=== PATIENT | female | born 1990 | race Caucasian/White ===

== ENCOUNTER 2018-07-02 17:51 | Emergency (ER) | payer OTHER, MEDICAID, SELFPAY ==
[2018-07-02 18:04] VITALS: BP 144/98; PULSE 121; RESP 18; TEMP 37.1; O2SAT 100; BMI 28.3
[2018-07-02 20:50] VITALS: BP 130/82; PULSE 96; O2SAT 96
--- NOTE | 2018-07-02 21:06 | ED_ITS ---
HPI - Wound/Laceration <STEPHEN Tamez - Last Filed: 07/02/18 22:32> General Chief Complaint: Wound/Laceration Stated Complaint: PAIN IN LEFT BREAST,BREAST FEEDING Time Seen by Provider: 07/02/18 20:49 Source: patient Mode of arrival: ambulatory Limitations: no limitations History of Present Illness HPI narrative: healthy 28-year-old female that is a nonsmoker and iscurrently breast feeding having complaint of bilateral breast pain over the past day. She states that she is trying to wean her son from breast-feeding she denies any fevers. she states that she did feel like she had chills earlier today. She denies any purulent drainage from the breast. No increased erythema or swelling. she denies any trauma to the breast. She denies any other concerns or complaints at this time. Related Data Previous Rx's Medication Instructions Recorded cephalexin 500 mg PO QID #28 tab 07/02/18 Allergies Allergy/AdvReac Type Severity Reaction Status Date / Time No Known Drug Allergies Allergy Verified 07/02/18 18:04 Review of Systems <STEPHEN Tamez - Last Filed: 07/02/18 22:32> Constitutional Denies chills, Denies fever(s), Denies lethargy and Denies weakness Eyes Denies change in vision, Denies eye discharge, Denies irritation and Denies loss of vision ENT Ears, Nose, Mouth, and Throat: Denies change in voice, Denies neck pain and Denies sore throat Cardiovascular Denies chest pain, Denies irregular heart rhythm, Denies lightheadedness, Denies palpitations, Denies dyspnea, Denies dyspnea on exertion and Denies orthopnea Respiratory Denies cough, Denies dyspnea, Denies dyspnea on exertion and Denies wheezing Gastrointestinal Gastrointestinal: Denies abdominal pain, Denies change in bowel habits, Denies diarrhea, Denies nausea and Denies vomiting Genitourinary Denies hematuria, Denies flank pain, Denies urinary incontinence and Denies urinary urgency Musculoskeletal Denies neck pain Integumentary/Breasts Reports breast pain Neurologic Denies confusion, Denies loss of vision and Denies weakness Psychiatric Denies anxiety, Denies confusion, Denies depression, Denies homicidal ideation and Denies suicidal ideation Endocrine Denies palpitations Hematologic/Lymphatic Denies easy bruising Allergic/Immunologic Denies wheezing Exam <STEPHEN Tamez - Last Filed: 07/02/18 22:32> Initial Vital Signs Initial Vital Signs: Vital Signs Temperature 98.8 F 07/02/18 18:04 Pulse Rate 121 H 07/02/18 18:04 Respiratory Rate 18 07/02/18 18:04 Blood Pressure 144/98 H 07/02/18 18:04 Pulse Oximetry 100 07/02/18 18:04 Const General: cooperative and well developed Nutritional Appearance: well nourished Orientation: alert, awake, oriented x3 and not confused [facility] Mouth: oral mucosae normal, oropharynx normal and moist mucous membranes Eyes Conjunctivae: conjunctivae normal Sclera: sclerae normal Pupils: PERRL EOM: EOM intact bilaterally Resp Effort & Inspection: normal respiratory effort, able to speak in complete sentences, no respiratory distress and no use of accessory muscles Auscultation: clear to auscultation bilaterally, no rales, no rhonchi and no wheezes Cardio Rate: regular rate Rhythm: regular rhythm Heart Sounds: no click, no gallops, no murmurs and no rubs Pulses: normal peripheral pulses GI Inspection: non-distended Palpation: soft, no hepatosplenomegaly, No guarding, No pulsatile mass and No tender Auscultation: normal bowel sounds Other: Bilateral breast with no swelling. No erythema. No increased temperature. No induration or fluctuance is felt. Breast appear normal in size bilaterally. Neuro General: alert, oriented x3, gait normal and no focal motor deficits Speech: speech normal <Christine Sullivan DO - Last Filed: 07/03/18 03:15> Initial Vital Signs Initial Vital Signs: Vital Signs Temperature 98.8 F 07/02/18 18:04 Pulse Rate 121 H 07/02/18 18:04 Respiratory Rate 18 07/02/18 18:04 Blood Pressure 144/98 H 07/02/18 18:04 Pulse Oximetry 100 07/02/18 18:04 Course <STEPHEN Tamez - Last Filed: 07/02/18 22:32> Vital Signs - 8 hr 07/02/18 20:50 Pulse Rate 96 H Blood Pressure [Right Arm] 130/82 Pulse Oximetry 96 <Christine Sullivan DO - Last Filed: 07/03/18 03:15> Vital Signs - 8 hr 07/02/18 20:50 Pulse Rate 96 H Blood Pressure [Right Arm] 130/82 Pulse Oximetry 96 MDM - Wound/Laceration <STEPHEN Tamez - Last Filed: 07/02/18 22:32> [facility] Narrative Medical decision making narrative: No signs of infection to the breast were appreciated at this time. Differential between a engorgement secondary to weaning her child or due to starting mastitis. Instructions are given for conservative care for engorgement if worsening symptoms such as increased redness or signs of infection she is giving a prescription for cephalexin to start taking. [id number] ibuprofen as needed for any discomfort . Follow up with primary care provider. For any worsening symptoms return to the emergency room. Discharge Plan Departure Patient Disposition: Home Clinical Impression: Pain of breast during Discharge Date/Time: 07/02/18 21:52 Interventions: ED Discharge Assessment Last Done: 07/02/18 21:51 Instructions: Breast Engorgement (Alternative Therapy), DI for Mastitis Activity Restrictions/Additional Instructions: No signs of infection to the breasts were appreciated at this time. Differential between a engorgement secondary to weaning child or due to starting mastitis. Instructions are given for conservative care for engorgement below. If worsening symptoms such as increased redness or signs of infection you are giving a prescription for cephalexin to start taking se as directed. Gwsk-akp-[id number] ibuprofen as needed for any discomfort . Follow up with primary care provider. For any worsening symptoms return to the emergency room. Applying warm compresses or a warm shower enhances let-down and may facilitate milk removal either by hand expression or with suckling After or between feedings, cold compresses may decrease the swelling and discomfort Analgesics such as ibuprofen and acetaminophen may decrease the discomfort Cool green cabbage leaves Prescriptions: New cephalexin 500 mg tablet 500 mg PO QID Qty: 28 RF: 0 Referrals: [facility] [Provider Group] <Christine Sullivan DO - Last Filed: 07/03/18 03:15> Cosign ED Attending Otf Attestation: I was immediately available in the department for consultation. Documentation has been reviewed. I agree with assessment and plan.
--- NOTE | 2018-07-02 21:50 | PC.NURSE ---
Pt states that she has began to ween her son from breast feeding,pt c/o left breast pain. No drainage,redness or increased swelling noted on exam.
== END 2018-07-02 21:52 | disposition home or self-care (01) ==
PROVIDERS: Emergency Provider Nurse Practitioner Family
DX: N64.4 Mastodynia (principal)
CPT/HCPCS: 99282

== ENCOUNTER 2023-02-16 14:56 | Emergency (ER) | payer OTHER, MEDICAID, SELFPAY ==
[2023-02-16] VITALS (12 sets, daily range): BP systolic 128–149; BP diastolic 71–89; PULSE 76–123; RESP 20; TEMP 36.8; O2SAT 97–98; BMI 28.3
--- NOTE | 2023-02-16 15:12 | DI.RAD.S_ITS ---
PROCEDURE: XR CHEST 1V INDICATIONS: chest pain TECHNIQUE: One view of the chest was acquired. COMPARISON: None. FINDINGS: Surgical changes and devices: None. Lungs and pleura: Lungs are clear. No pleural effusions or pneumothorax. Mediastinum: Mediastinal contours appear normal. Heart size is normal. Bones and chest wall: No suspicious bony lesions. Overlying soft tissues appear unremarkable. IMPRESSION: No acute cardiopulmonary abnormality. Dictated by: Evan Sanz M.D. on 02/16/2023 at 16:30 Approved by: Evan Sanz M.D. on 02/16/2023 at 16:32
[2023-02-16 15:48] LABS: Add Manual Diff / Slide Review NO; Basophils Absolute Auto 0 /uL (0-100); Basophils Percent Auto 0.4 % (0-2); Eosinophils Absolute Auto 100 /uL (0-450); Eosinophils Percent Auto 0.9 % (2-4); Hematocrit 35.3 % (36-46); Hemoglobin 12.6 g/dL (12.0-16.0); Lymphocytes Absolute Auto 1400 /uL (1100-4500); Lymphocytes Percent Auto 11.6 % (25-40); Mean Corpuscular HGB Conc 35.8 % (30-36); Mean Corpuscular Hemoglobin 30.9 PG (26-34); Mean Corpuscular Volume 86.3 fL (80-100); Monocytes Absolute Auto 600 /uL (0-900); Monocytes Percent Auto 5.4 % (3-14); Neutrophils Absolute Auto 9600 /uL (1500-7000); Neutrophils Percent Auto 81.7 % (50-75); Platelet Count 290 X10^3/uL (150-400); Red Blood Cell Count 4.09 X10^6/uL (4.0-5.2); Red Cell Distribution Width 12.8 % (11.6-14.8); White Blood Cell Count 11.7 X10^3/uL (4.5-11.0)
[2023-02-16 15:53] LABS: INR 1.1 (0.9-1.3); Prothrombin Time 12.5 SECONDS (10.1-12.7)
[2023-02-16 15:56] LABS: PTT Partial Thromboplastin Tim 28 SECONDS (26-36)
[2023-02-16 16:00] LABS: Alanine Aminotransferase 14 IU/L (<35); Albumin 4.6 g/dL (3.5-5.0); Albumin Globulin Ratio 1.5 (1.0-2.8); Alkaline Phosphatase 58 U/L (38-126); Aspartate Aminotransferase 22 IU/L (14-36); BUN Creatinine Ratio 10.3 (6-22); Bilirubin Total 0.5 mg/dL (0.2-1.3); Blood Urea Nitrogen 7 mg/dL (7-17); Calcium 9.6 mg/dL (8.4-10.2); Carbon Dioxide 24 mmol/L (22-32); Chloride 106 mmol/L (98-107); Creatine Kinase 64 U/L (30-135); Estimated Glomerular Filt Rate > 60 mL/min (>60); Globulin 3.1 g/dL (1.7-4.1); Glucose 106 mg/dL (70-100); HEMOLYSIS 15 (0-50); Lipase 49 U/L (23-300); Magnesium 1.9 mg/dL (1.6-2.3); Potassium 3.5 mmol/L (3.4-5.1); Sodium 139 mmol/L (137-145); Total Protein 7.7 g/dL (6.3-8.2)
[2023-02-16 16:11] LABS: Troponin I < 0.012 ng/mL (0.01-0.034)
[2023-02-16 16:33] LABS: TSH w/ Reflex to FT4 5.26 uIU/mL (0.47-4.68)
[2023-02-16 16:58] LABS: Appearance Urine UA CLEAR; Bilirubin Urine UA NEGATIVE (NEGATIVE); Color Urine UA YELLOW; Glucose Urine UA NEGATIVE (Negative); Ketones Urine UA NEGATIVE (NEGATIVE); Leukocyte Esterase Urine UA NEGATIVE (NEGATIVE); Nitrite Urine UA NEGATIVE (Negative); Occult Blood Urine UA NEGATIVE (Negative); Protein Urine UA NEGATIVE (Negative); Specific Gravity Urine UA <=1.005 (1.000-1.035); Urobilinogen Urine UA 0.2 E.U./dL (0.2)
--- NOTE | 2023-02-16 17:00 | PC.NURSE ---
Provided food and beverage
[2023-02-16 17:02] LABS: pH Urine UA 5.5 (4.5-8.0)
[2023-02-16 17:05] LABS: Pregnancy Test Urine Negative (Negative)
[2023-02-16 17:06] LABS: Bacteria Urine None Seen; Culture Indicated Urine Cult Not Indicated; RBC Urine 0-1/HPF (0-5/HPF); Squamous Epithelial Cell Urine 0-1 /HPF (0-5/HPF); WBC Urine 0-1/HPF (0-5/HPF)
[2023-02-16 17:06] LABS: Free T4, Direct Thyroxine 0.99 ng/dL (0.78-2.19)
--- NOTE | 2023-02-16 18:26 | CM.SWNOTE ---
Addendum entered by Deann Matute 02/17/23 12:22: HISTORIAN RESEARCH ASSISTANT calls PCP office and schedules ED f/u establish care appt for patient with Dr. Graham on 02/24 @ 9:15AM check in. HISTORIAN RESEARCH ASSISTANT calls patient and provides information, patient indicates agreement and understanding. ADAM Selby Original Note: HISTORIAN RESEARCH ASSISTANT Assessment Note HISTORIAN RESEARCH ASSISTANT receives consult for patient due to patient's anxiety. Patient is 33 y/o female who presents to ED via POV due to concern for anxiety attacks for the last 2 weeks. Patient does not have PCP, [facility]. HISTORIAN RESEARCH ASSISTANT enters room to meet with patient, patient presents as A/Ox4. Patient presents with flat affect and fatigued. Patient denies SI, HI or self harm. Patient endorses concern for anxiety, physical symptoms of anxiety and concern that there is something wrong with her. Patient denies need for regular medical visits as she has not seen a doctor since her son was born 6 years ago. Patient endorses stress and anxiety at baseline but states that symptoms have worsened in the last two weeks. 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 Patient endorses fatigue and sometimes forgets to care for self, eat and drink. Patient states she is usually focused on caring for others. Patient endorses she has a good support system from her spouse and her sister who lives in [place]. Patient endorses she doesn't usually talk about her stressors or reach out for help. Patient endorses that anxiety increases at night and she feels her heart rate increase, chest pain and mind racing. HISTORIAN RESEARCH ASSISTANT discusses breathing techniques and grounding techniques with patient. HISTORIAN RESEARCH ASSISTANT to call patient and PCP office tomorrow to establish PCP care for patient, HISTORIAN RESEARCH ASSISTANT provides patient with list of therapists that accept her insurance. HISTORIAN RESEARCH ASSISTANT to provide patient handout about square breathing. Plan: Patient to be evaluated by ED provider, HISTORIAN RESEARCH ASSISTANT to f/u with patient tomorrow regarding PCP, patient to seek provider. ADAM Selby
[2023-02-16] MEDS: SODIUM CHLORIDE 0.9% 1,000 ML 1000 ML IV (18:35)
[2023-02-16 18:41] LABS: D Dimer 429 ng/ml (<500)
--- NOTE | 2023-02-16 19:53 | ED.ANXIETY ---
HPI - Anxiety General Chief Complaint: Anxiety Stated Complaint: aniexty attack/ T-14 on and off Time Seen by Provider: 02/16/23 18:11 Source: patient Mode of arrival: Ambulatory History of Present Illness HPI narrative: 33-year-old woman with no diagnosed medical issues notes over the last weeks to months she is been having increasing anxiety heart racing difficulty sleeping mild anhedonia. She is not having thoughts of self-harm. Today she woke up feeling relatively anxious over all and then had a discussion with her father that led to her feeling completely overwhelmed that led to an episode where her heart was racing, she was acutely anxious she developed left-sided chest pain, shortness at breath, fingers tingling bilaterally, she felt dizzy and faint and became slightly diaphoretic. She came into the emergency department for further evaluation. She describes no recent fever, cough, chills Keppra upper respiratory infections. She states that she is eating appropriately in weight has been stable. She notes that her sister has been having similar anxiety concerns and recently started on an antianxiety medication that has proven quite helpful for her. Related Data Previous Rx's Medication Instructions Recorded buspirone 7.5 mg tablet 7.5 mg PO BID #60 tabs 02/16/23 escitalopram oxalate 10 mg tablet 5 mg PO DAILY #30 tabs 02/16/23 hydroxyzine HCl 50 mg tablet 25 - 50 mg PO TID PRN anxiety #30 02/16/23 tabs Allergies Allergy/AdvReac Type Severity Reaction Status Date / Time No Known Drug Allergies Allergy Verified 02/16/23 15:13 Review of Systems Review of Systems Narrative: Pertinent positive and negative findings as per HPI Patient History Medical History (Updated 02/16/23 @ 21:18 by Mila Velazco MD) Anxiety Exam Initial Vital Signs Initial Vital Signs: Vital Signs Temperature 98.2 F 02/16/23 15:05 Pulse Rate 121 H 02/16/23 15:05 Respiratory Rate 20 02/16/23 15:05 Blood Pressure 138/86 02/16/23 15:05 Pulse Oximetry 98 02/16/23 15:05 Oxygen Delivery Method Room Air 02/16/23 15:05 General: Pale, anxious but Able to give a complete and coherent history. Well-nourished well-developed HEENT: Moist mucous membranes, normal sclera with reactive pupils, Respiratory: Lungs are clear to auscultation, no wheezing no rales no rhonchi. Full and symmetrical air movement Cardiac: Tachycardic but otherwise Regular rate and rhythm no murmurs no bruits Abdomen: Soft, nontender, good bowel tones, no flank pain Skin: Warm and dry, no rashes Neurologic: Grossly neurologically intact with no obvious asymmetries or abnormalities Extremities: No trauma, well perfused Psych: Cooperative, appropriate thought contact, fluent speech, good eye contact rather flat affect and quiet overall tone Course Orders Ordered: ED Orders 02/16/23 15:12 XR chest 1V Stat 02/16/23 15:43 EKG-12 Lead Stat 02/16/23 15:44 Complete Blood Count AUTO DIFF Stat Comprehensive Metabolic Panel Stat D Dimer Stat Free T4, Direct Thyroxine Stat Lipase Stat Magnesium Stat PTT Partial Thromboplastin Efrain Stat Prothrombin Time INR Stat TSH w/ Reflex to FT4 Stat Troponin & CK Cardiac Panel Stat 02/16/23 15:46 Consult to [employer] - [employer] Stat 02/16/23 16:45 Test Urine Stat Urinalysis and Microscopic Stat Discontinued Medications Sodium Chloride (Normal Saline 0.9%) 1,000 mls @ 1,000 mls/hr IV BOLUS ONE Stop: 02/16/23 19:21 Last Infusion: 02/16/23 19:40 Dose: 0 mls/hr Documented By: Admin: 02/16/23 18:35 Dose: 1,000 mls/hr Documented By: Vital Signs Vital signs: Vital Signs - 8 hr 02/16/23 15:05 02/16/23 18:04 02/16/23 18:04 Temperature 98.2 F Pulse Rate 121 H 116 H 114 H Respiratory Rate 20 20 Blood Pressure 138/86 149/89 H Pulse Oximetry 98 98 Oxygen Delivery Method Room Air 02/16/23 18:30 02/16/23 19:00 02/16/23 19:30 Temperature Pulse Rate 101 H 92 H 98 H Respiratory Rate Blood Pressure Pulse Oximetry 98 98 97 Oxygen Delivery Method Room Air MDM - Anxiety Lab Data 02/16/23 15:44 02/16/23 15:44 Labs: Lab Results 02/16/23 02/16/23 02/16/23 Range/Units 15:44 15:44 15:44 WBC 11.7 H (4.5-11.0) X10^3/uL RBC 4.09 (4.0-5.2) X10^6/uL Hgb 12.6 (12.0-16.0) g/dL Hct 35.3 L (36-46) % MCV 86.3 (80-100) fL MCH 30.9 (26-34) PG MCHC 35.8 (30-36) % RDW 12.8 (11.6-14.8) % Plt Count 290 (150-400) X10^3/uL Neut % (Auto) 81.7 H (50-75) % Lymph % (Auto) 11.6 L (25-40) % Sanders % (Auto) 5.4 (3-14) % Eos % (Auto) 0.9 L (2-4) % Baso % (Auto) 0.4 (0-2) % Neut # (Auto) 9600 H (5268-6807) /uL Lymph # (Auto) 1400 (2445-3268) /uL Sanders # (Auto) 600 (0-900) /uL Eos # (Auto) 100 (0-450) /uL Baso # (Auto) 0 (0-100) /uL PT 12.5 (10.1-12.7) SECONDS INR 1.1 (0.9-1.3) APTT 28 (26-36) SECONDS D-Dimer (<500) ng/ml Sodium 139 (137-145) mmol/L Potassium 3.5 (3.4-5.1) mmol/L Chloride 106 (98-107) mmol/L Carbon Dioxide 24 (22-32) mmol/L BUN 7 (7-17) mg/dL Creatinine 0.68 (0.52-1.04) mg/dL Estimated GFR > 60 (>60) mL/min BUN/Creatinine Ratio 10.3 (6-22) Glucose 106 H (70-100) mg/dL Calcium 9.6 (8.4-10.2) mg/dL Magnesium 1.9 (1.6-2.3) mg/dL Total Bilirubin 0.5 (0.2-1.3) mg/dL AST 22 (14-36) IU/L ALT 14 (<35) IU/L Alkaline Phosphatase 58 (38-126) U/L Total Creatine Kinase 64 (30-135) U/L Troponin I < 0.012 (0.01-0.034) ng/mL Total Protein 7.7 (6.3-8.2) g/dL Albumin 4.6 (3.5-5.0) g/dL Globulin 3.1 (1.7-4.1) g/dL Albumin/Globulin Ratio 1.5 (1.0-2.8) Lipase 49 (23-300) U/L TSH (0.47-4.68) uIU/mL Free T4 (0.78-2.19) ng/dL Urine Color Urine Appearance Urine pH (4.5-8.0) Ur Specific [place] (1.000-1.035) Urine Protein (Negative) Urine Glucose (UA) (Negative) g/dL Urine Ketones (NEGATIVE) Urine Occult Blood (Negative) Urine Nitrate (Negative) Urine Bilirubin (NEGATIVE) Urine Urobilinogen (0.2) E.U./dL Ur Leukocyte Esterase (NEGATIVE) Urine RBC (0-5/HPF) Urine WBC (0-5/HPF) Ur Squamous Epith Cells (0-5/HPF) Urine Bacteria (None) Ur Culture Indicated? Urine Test (Negative) 02/16/23 02/16/23 02/16/23 Range/Units 15:44 15:44 16:45 WBC (4.5-11.0) X10^3/uL RBC (4.0-5.2) X10^6/uL Hgb (12.0-16.0) g/dL Hct (36-46) % MCV (80-100) fL MCH (26-34) PG MCHC (30-36) % RDW (11.6-14.8) % Plt Count (150-400) X10^3/uL Neut % (Auto) (50-75) % Lymph % (Auto) (25-40) % Sanders % (Auto) (3-14) % Eos % (Auto) (2-4) % Baso % (Auto) (0-2) % Neut # (Auto) (2746-5590) /uL Lymph # (Auto) (8371-7669) /uL Sanders # (Auto) (0-900) /uL Eos # (Auto) (0-450) /uL Baso # (Auto) (0-100) /uL PT (10.1-12.7) SECONDS INR (0.9-1.3) APTT (26-36) SECONDS D-Dimer 429 (<500) ng/ml Sodium (137-145) mmol/L Potassium (3.4-5.1) mmol/L Chloride (98-107) mmol/L Carbon Dioxide (22-32) mmol/L BUN (7-17) mg/dL Creatinine (0.52-1.04) mg/dL Estimated GFR (>60) mL/min BUN/Creatinine Ratio (6-22) Glucose (70-100) mg/dL Calcium (8.4-10.2) mg/dL Magnesium (1.6-2.3) mg/dL Total Bilirubin (0.2-1.3) mg/dL AST (14-36) IU/L ALT (<35) IU/L Alkaline Phosphatase (38-126) U/L Total Creatine Kinase (30-135) U/L Troponin I (0.01-0.034) ng/mL Total Protein (6.3-8.2) g/dL Albumin (3.5-5.0) g/dL Globulin (1.7-4.1) g/dL Albumin/Globulin Ratio (1.0-2.8) Lipase (23-300) U/L TSH 5.26 H (0.47-4.68) uIU/mL Free T4 0.99 (0.78-2.19) ng/dL Urine Color Yellow Urine Appearance Clear Urine pH 5.5 (4.5-8.0) Ur Specific [place] <=1.005 (1.000-1.035) Urine Protein Negative (Negative) Urine Glucose (UA) Negative (Negative) g/dL Urine Ketones Negative (NEGATIVE) Urine Occult Blood Negative (Negative) Urine Nitrate Negative (Negative) Urine Bilirubin Negative (NEGATIVE) Urine Urobilinogen 0.2 (0.2) E.U./dL Ur Leukocyte Esterase Negative (NEGATIVE) Urine RBC 0-1/hpf (0-5/HPF) Urine WBC 0-1/hpf (0-5/HPF) Ur Squamous Epith Cells 0-1 /hpf (0-5/HPF) Urine Bacteria None seen (None) Ur Culture Indicated? Cult not indicated Urine Test (Negative) 07/17/23 Range/Units 16:45 WBC (4.5-11.0) X10^3/uL RBC (4.0-5.2) X10^6/uL Hgb (12.0-16.0) g/dL Hct (36-46) % MCV (80-100) fL MCH (26-34) PG MCHC (30-36) % RDW (11.6-14.8) % Plt Count (150-400) X10^3/uL Neut % (Auto) (50-75) % Lymph % (Auto) (25-40) % Sanders % (Auto) (3-14) % Eos % (Auto) (2-4) % Baso % (Auto) (0-2) % Neut # (Auto) (6435-4840) /uL Lymph # (Auto) (5599-1300) /uL Sanders # (Auto) (0-900) /uL Eos # (Auto) (0-450) /uL Baso # (Auto) (0-100) /uL PT (10.1-12.7) SECONDS INR (0.9-1.3) APTT (26-36) SECONDS D-Dimer (<500) ng/ml Sodium (137-145) mmol/L Potassium (3.4-5.1) mmol/L Chloride (98-107) mmol/L Carbon Dioxide (22-32) mmol/L BUN (7-17) mg/dL Creatinine (0.52-1.04) mg/dL Estimated GFR (>60) mL/min BUN/Creatinine Ratio (6-22) Glucose (70-100) mg/dL Calcium (8.4-10.2) mg/dL Magnesium (1.6-2.3) mg/dL Total Bilirubin (0.2-1.3) mg/dL AST (14-36) IU/L ALT (<35) IU/L Alkaline Phosphatase (38-126) U/L Total Creatine Kinase (30-135) U/L Troponin I (0.01-0.034) ng/mL Total Protein (6.3-8.2) g/dL Albumin (3.5-5.0) g/dL Globulin (1.7-4.1) g/dL Albumin/Globulin Ratio (1.0-2.8) Lipase (23-300) U/L TSH (0.47-4.68) uIU/mL Free T4 (0.78-2.19) ng/dL Urine Color Urine Appearance Urine pH (4.5-8.0) Ur Specific [place] (1.000-1.035) Urine Protein (Negative) Urine Glucose (UA) (Negative) g/dL Urine Ketones (NEGATIVE) Urine Occult Blood (Negative) Urine Nitrate (Negative) Urine Bilirubin (NEGATIVE) Urine Urobilinogen (0.2) E.U./dL Ur Leukocyte Esterase (NEGATIVE) Urine RBC (0-5/HPF) Urine WBC (0-5/HPF) Ur Squamous Epith Cells (0-5/HPF) Urine Bacteria (None) Ur Culture Indicated? Urine Test Negative (Negative) MDM Narrative Medical decision making narrative: CC: Anxiety/panic attack, this is an acute issue on diagnosed uncertain prognosis Complicating co-morbidities: Increasing anxiety over the last number of weeks Data collected from: patient, partner Social determinants of health that may influence the patients condition: No current primary care provider Differential considered: Anxiety with panic attack, depression, pulmonary embolism, pneumothorax, acute coronary syndrome Exam documented above, pertinent findings include: Mild baseline anxiety physical exam is otherwise unremarkable Lab Test results independently reviewed as above. Pertinent findings: CBC shows a white count of 11.7 normal H&H. Chemistries are reassuring. Troponin is undetectable TSH is 5.26 with a normal free T4. D-dimer is less than 500 suggesting absence of pulmonary embolism Independently reviewed EKG sinus tachycardia at a rate of 118. Normal intervals, normal axis. No acute ischemic changes Imaging studies independently reviewed: Chest x-ray is unremarkable Consultations: Patient was seen by social Work with additional outpatient follow-up options given Discussion: 33-year-old woman with weeks of increasing anxiety with depressive symptoms no suicidal ideation. With the she did not fact have a panic attack tonight. She is very open to treatment options. Her sister is currently rinsing similar symptoms and was recently started on Lexapro and BuSpar with very effective results. Discussed the negative physical workup, my concerns for anxiety and depression and how the to her so intertwined, recommended considering trying both Lexapro and BuSpar and the patient is quite open to that. We talked about benefits, risks side effects. Also talked about apps to help with 5 minute breathing meditation exercises when she feels that things are getting out of control. Impressed upon her the importance of getting into a primary care physician. Given the fact that that can take a number of months no matter where she is calling in the local area I am going to give her 3 months of both Lexapro and BuSpar. Questions are answered and she is safe for discharge Discharge Plan Departure Patient Disposition: Home Clinical Impression: Acute anxiety, Panic attack, Anxiety with depression Instructions: DI for Depression -- Adult, Anxiety and Panic Attacks (Alternative Therapy) Activity Restrictions/Additional Instructions: Thank you for coming in today It is frightening when you continue to feel anxious and can not always find a direct reason. It is often difficult to determine whether anxiety is the initial problem or depression is the initial problem. Typically the wo are so entertwined that treating both is appropriate. I find it encouraging that your sister has had success with the combination of Lexapro/escitalopram and BuSpar. This is the combination that I typically start people with for symptoms similar to yours. Please note that both medications do need time to build up in your blood system. You likely will not notice much in the 1st week, by the 2nd week you may notice that things are improving. By week 4 you should be noticing a significant improvement. If not, this would be the appropriate time to consider changing doses I am also going to give you a prescription for medication called Vistaril. This can also help with anxiety and with sleep. It is not addictive. You may find that it is helpful while the other medications are building up in her system. Please look up some of the breathing/meditation apps that are available for free, 5 minutes of focused breathing and meditation can be very helpful in preventing the anxiety from escalating. Doing that when you are not in a crisis situation so that you are comfortable with the feeling and the ability to focus and calm yourself is going to be helpful so that you are able to do this as anxiety is dramatically escalating. You will need to follow-up with the primary care physician. Please recognize there is a severe shortage in the entire area so if you are told that the 1st available appointment is in 3 months, please schedule that appointment. If you find that you are getting worse or develop any new symptoms, please feel free to return to the emergency department for further evaluation. Prescriptions: New escitalopram oxalate 10 mg tablet 5 mg PO DAILY Qty: 30 3RF buspirone 7.5 mg tablet 7.5 mg PO BID Qty: 60 3RF hydroxyzine HCl 50 mg tablet 25 - 50 mg PO TID PRN (Reason: anxiety) Qty: 30 0RF Referrals: Miscellaneous,Doctor, MD [Primary Care Provider] - Stand Alone Forms: Patient Portal/API
== END 2023-02-16 22:10 | disposition home or self-care (01) ==
PROVIDERS: Emergency Medicine; Emergency Provider Emergency Medicine
DX: F41.0 Panic disorder [episodic paroxysmal anxiety] (principal); F41.9 Anxiety disorder, unspecified; F32.A Depression, unspecified; R00.2 Palpitations; R07.9 Chest pain, unspecified
CPT/HCPCS: 36415; 71045; 80053; 81001; 81025; 82550; 83690; 83735; 84439; 84443; 84484; 85025; 85379; 85610; 85730; 93005; 99284